=== PATIENT | male | born 1955 | race Caucasian/White ===

== ENCOUNTER 2017-06-21 07:10 | Emergency (ER) | payer MEDICAID ==
[~2017-06-21] VITALS: Ht 170.2 cm; Wt 146.0 kg
[2017-06-21 07:58] LABS: BASOPHILS % 0.7 % (0.0-2.0); EOSINOPHILS % 1.6 % (0.0-5.0); HEMATOCRIT. 36.5 % (42.0-52.0); HEMOGLOBIN. 12.4 g/dL (14.0-18.0); LYMPHOCYTES % 12.5 % (20.0-50.0); MEAN CORPUSCULAR VOLUME 85.6 fL (80.0-94.0); MEAN PLATELET VOLUME 8.2 fl (7.4-10.4); MONOCYTES % 7.3 % (2.0-8.0); NEUTROPHILS % 77.9 % (40.0-76.0); PLATELET 259 x1000/uL (130-400); RED BLOOD CELL COUNT 4.27 mill/uL (4.7-6.1); RED CELL DISTRIBUTION WIDTH 14.3 % (11.6-14.6)
[2017-06-21 08:05] LABS: INR 1.1; PROTHROMBIN TIME 11.7 sec (9.4-11.6)
[2017-06-21 08:09] LABS: CARBON DIOXIDE 29 mEq/L (21-32); CHLORIDE 98 mEq/L (98-107)
[2017-06-21] MEDS ORDERED: ACETAMINOPHEN WITH CODEINE 300/30MG TABLET PO ONE (08:15)
[2017-06-21 09:38] VITALS: BP 148/84
== END 2017-06-21 10:10 | disposition home or self-care (01) ==
LOC: EDBD 07:21 → ER 07:21
DX: M96.831 Postprocedural hemorrhage of a musculoskeletal structure following other procedure (principal); M54.9 Dorsalgia, unspecified; G89.18 Other acute postprocedural pain; I10 Essential (primary) hypertension; Z98.1 Arthrodesis status
CPT/HCPCS: 36415; 72131; 80053; 85025; 85610; 99285; Z7610